=== PATIENT | female | born 1950 | race Hispanic/Latino ===

== ENCOUNTER → 2019-03-16 | Outpatient (CLI) | payer MEDICARE ==
--- NOTE | 2019-03-16 14:25 | Diagnostic Imaging Report ---
Exam: KUB - 2 views Indication: Renal calculus Comparison: None Findings: No radiographically apparent renal calculi. Calcific density overlying the midline pelvis measuring 2.4 cm may represent a bladder calculus. Nonobstructive bowel gas pattern. No free air. Status post cholecystectomy. Degenerative changes of the visualized spine. Impression: No radiographic apparent renal calculi. Calcific density overlying the midline pelvis measures 2.4 cm and may represent a bladder calculus. Signed by: Moe Lozano MD on 03/16/2019 2:21 PM
== END ==
LOC: RAD 12:30
PROVIDERS: ATTEND Urology
DX: N20.0 Calculus of kidney (principal)
CPT/HCPCS: 74018

== ENCOUNTER → 2019-03-30 | Outpatient (CLI) | payer MEDICARE ==
--- NOTE | 2019-03-30 12:53 | Diagnostic Imaging Report ---
EXAM: CT Abdomen and Pelvis WITHOUT intravenous contrast INDICATION: Renal calculi, hematuria COMPARISON: KUB of 03/16/2019 TECHNIQUE: Abdomen and pelvis were scanned utilizing a multidetector helical scanner from the lung base to the pubic symphysis without administration of IV contrast. Coronal and sagittal reformations were obtained. IV CONTRAST: None ORAL CONTRAST: None COMPLICATIONS: None RADIATION DOSE: Total DLP: 225.97 mGy*cm Dose modulation, iterative reconstruction, and/or weight based adjustment of the mA/kV was utilized to reduce the radiation dose to as low as reasonably achievable. FINDINGS: LOWER THORAX: Normal. HEPATOBILIARY: No focal hepatic lesions. Status post cholecystectomy. SPLEEN: No splenomegaly. PANCREAS: No focal masses or ductal dilatation. ADRENALS: No adrenal nodules. KIDNEYS/URETERS: 1 cm hypodense left adrenal nodule consistent with lipid rich adenoma. No further imaging follow-up is needed. No right adrenal nodule. PELVIC ORGANS/BLADDER: Unremarkable. PERITONEUM / RETROPERITONEUM: No hydronephrosis. 2 mm nonobstructive left upper pole renal calculus. Left lower pole exophytic large simple appearing renal cyst measures up to 7.8 x 7.5 cm. A 1.5 cm left upper pole partially exophytic renal cyst appears to have soft tissue nodularity along the posterior aspect and is indeterminate on this single phase study. An additional 2.2 cm partially exophytic anterior left upper pole cyst appears simple.Simple appearing 1.6 cm right lower pole exophytic cyst. LYMPH NODES: No lymphadenopathy. VESSELS: Scattered atherosclerotic calcifications of the nonaneurysmal abdominal aorta. GI TRACT: No abnormal bowel thickening. No bowel obstruction. Normal appendix. BONES AND SOFT TISSUES: No acute osseous injury. No suspicious lytic or blastic lesions. Phleboliths in the pelvis. IMPRESSION: No hydronephrosis. 2 mm nonobstructive left upper pole renal calculus. Left greater than right renal cysts. A 1.5 cm left upper pole partially exophytic renal cyst appears to have soft tissue nodularity along the posterior aspect and is indeterminate on this single phase study. The remaining bilateral cysts appear simple. Signed by: Moe Lozano MD on 03/30/2019 12:50 PM
== END ==
LOC: CT 10:48
PROVIDERS: ATTEND Urology
DX: N20.0 Calculus of kidney (principal)
CPT/HCPCS: 74176